=== PATIENT | male | born 1980 | race Hispanic/Latino ===

== ENCOUNTER 2023-11-05 22:06 | Emergency (ER) | payer OTHER ==
[~2023-11-05] VITALS: Ht 177.8 cm; Wt 90.7 kg
[2023-11-05] MEDS ORDERED: MEDROL4 M2 PO (22:58)
[2023-11-05] MEDS ORDERED: ORPHENADRINE C100 MG PO (22:58)
[2023-11-05] MEDS ORDERED: KETOROLAC TROMETHAMINE 60 MG/2 ML VIAL IM ONE (23:00)
[2023-11-05 23:38] VITALS: BP 112/85; O2SAT 98
== END 2023-11-05 23:36 | disposition home or self-care (01) ==
LOC: ER 22:15
DX: M25.551 Pain in right hip (principal); M54.31 Sciatica, right side
CPT/HCPCS: 99282; J1885